=== PATIENT | male | born 1950 | race Caucasian/White ===

== ENCOUNTER 2024-07-31 11:50 | Outpatient (CLI) | payer MEDICARE, SELFPAY | END 2024-07-31 11:51 | disposition home or self-care (01) | PROVIDERS: PCP Family Medicine; Visit Provider Family Medicine | DX: E53.8 Deficiency of other specified B group vitamins (principal); F33.9 Major depressive disorder, recurrent, unspecified; Z13.6 Encounter for screening for cardiovascular disorders; Z12.5 Encounter for screening for malignant neoplasm of prostate | CPT/HCPCS: 80048; 80061; 82607; 84443; 85025; G0103 ==